=== PATIENT | female | born 1945 | race Caucasian/White ===

== ENCOUNTER 2020-11-19 10:51 | Outpatient (CLI) | payer MEDICARE | END 2020-11-19 10:52 | disposition home or self-care (01) | LOC: BICRAD 10:51 | PROVIDERS: ATTEND Internal Medicine Critical Care Medicine | DX: R06.00 Dyspnea, unspecified (principal); I51.7 Cardiomegaly; R09.89 Other specified symptoms and signs involving the circulatory and respiratory systems | CPT/HCPCS: 71046 ==

== ENCOUNTER 2021-04-14 12:47 | Outpatient (CLI) | payer MEDICARE | END 2021-04-14 12:48 | disposition home or self-care (01) | LOC: BICRAD 12:47 | PROVIDERS: ATTEND Internal Medicine Critical Care Medicine | DX: R06.00 Dyspnea, unspecified (principal) | CPT/HCPCS: 71046 ==

== ENCOUNTER 2021-10-15 13:36 | Inpatient (IN) | payer MEDICARE ==
[2021-10-15 16:04] VITALS: BMI 42.2
[2021-10-15] MEDS ORDERED: HYDROcodone/Acetaminophen 7.5/325 mg Tablet PO PRN (18:03)
[2021-10-15] MEDS ORDERED: Acetaminophen 325 MG TAB PO PRN (18:03)
[2021-10-15] MEDS ORDERED: Ondansetron PF 4 MG/2 ML Vial IVP PRN (18:03)
[2021-10-16] MEDS ORDERED: Ondansetron ODT 4 MG TAB PO PRN (02:58)
[2021-10-16] MEDS ORDERED: Dextrose 50% Abboject 50 ML SYRINGE SLOW IVP PRN (02:58)
[2021-10-16] MEDS ORDERED: Dextrose 5% in Water 1,000 ML IV PRN (02:58)
[2021-10-16] MEDS: HumaLOG 300 UNITS/3 ML VIAL SC PRN ×2 (05:44→21:41)
[2021-10-16 06:01] LABS: Magnesium 2.1 mg/dL (1.6-2.6)
[2021-10-16] MEDS ORDERED: Enoxaparin Sodium 40 MG/0.4 ML SYRINGE SC SCH (09:00)
[2021-10-16] MEDS ORDERED: Azithromycin 250 MG TAB PO SCH (12:15)
[2021-10-16] MEDS ORDERED: predniSONE 20 MG TAB PO SCH (12:15)
[2021-10-16] MEDS ORDERED: Albuterol Sulfate 2.5 mg/3 ml Neb NEB PRN (13:00)
[2021-10-16] MEDS: Furosemide 20 MG TAB PO SCH (14:28)
[2021-10-16] MEDS: Lantus 1000 UNITS/10 ML VIAL SC SCH (21:33)
[2021-10-16] MEDS: Atorvastatin Calcium 10 MG TAB PO SCH (21:33)
[2021-10-17] MEDS: Levothyroxine Sodium 112 MCG TAB PO SCH (05:17)
[2021-10-17] MEDS: HumaLOG 300 UNITS/3 ML VIAL SC PRN ×3 (05:20→21:32)
[2021-10-17 05:56] LABS: Anion Gap 14 mmol/L (10-20); BUN (Urea Nitrogen) 20 mg/dL (9.8-20.1); Calc. Creatinine Clearance 126 mL/min (70-130); Calcium 9.1 mg/dL (7.8-10.44); Carbon Dioxide 33 mmol/L (23-31); Chloride 94 mmol/L (98-107); Glucose 160 mg/dL (83-110); Potassium 4.1 mmol/L (3.5-5.1); Sodium 137 mmol/L (136-145)
[2021-10-17] MEDS: metFORMIN 500 MG TAB PO SCH ×2 (09:05→17:10)
[2021-10-17] MEDS: Furosemide 20 MG TAB PO SCH ×2 (09:06→13:41)
[2021-10-17] MEDS: Azithromycin 250 MG TAB PO SCH (09:06)
[2021-10-17] MEDS: predniSONE 20 MG TAB PO SCH (09:06)
[2021-10-17] MEDS: Stress 600 With Zinc 1 TAB PO SCH (09:20)
[2021-10-17] MEDS: Lisinopril/Hydrochlorothiazide 10 mg/12.5 mg Tablet PO SCH (09:20)
[2021-10-17] MEDS: Alogliptin 25 MG TAB PO SCH (09:21)
[2021-10-17] MEDS: Enoxaparin Sodium 120 MG/0.8 ML SYRINGE SC SCH ×2 (09:37→21:30)
[2021-10-17] MEDS: Atorvastatin Calcium 10 MG TAB PO SCH (21:30)
[2021-10-17] MEDS: Lantus 1000 UNITS/10 ML VIAL SC SCH (21:31)
[2021-10-18] MEDS: Levothyroxine Sodium 112 MCG TAB PO SCH (05:18)
[2021-10-18 05:44] LABS: #Eosinphils 0.1 thou/uL (0.0-0.7); #Lymphocytes 2.3 thou/uL (1.20-3.40); #Monocytes 1.1 thou/uL (0.11-0.59); #Neutrophils 6.6 thou/uL (1.40-6.50); %Basophils 0.2 % (0.0-1.0); %Eosinophils 1.1 % (0.0-10.0); %Lymphocytes 22.6 % (21.0-51.0); %Monocytes 11.2 % (0.0-10.0); Hemoglobin 12.2 g/dL (12.0-16.0); Mean Corpuscular HGB CONC 32.2 g/dL (32.0-36.0); Mean Corpuscular Hemoglobin 30.4 pg (27.0-31.0); Mean Corpuscular Volume 94.4 fL (78.0-98.0); Mean Platelet Volume 7.4 fL (7.4-10.4); Platelet Count 324 thou/uL (130-400); RBC Distribution Width 14.9 % (11.5-14.5); Red Blood Cell (RBC) Count 4.02 mill/uL (4.20-5.40); White Blood Cell (WBC) Count 10.1 thou/uL (4.8-10.8)
[2021-10-18 06:15] LABS: BUN (Urea Nitrogen) 19 mg/dL (9.8-20.1); Calc. Creatinine Clearance 117 mL/min (70-130); Calcium 9.4 mg/dL (7.8-10.44); Glucose 96 mg/dL (83-110)
[2021-10-18 06:17] LABS: Anion Gap 18 mmol/L (10-20); Carbon Dioxide 33 mmol/L (23-31); Chloride 89 mmol/L (98-107); Potassium 4.2 mmol/L (3.5-5.1); Sodium 136 mmol/L (136-145)
[2021-10-18] MEDS: metFORMIN 500 MG TAB PO SCH ×2 (08:38→17:38)
[2021-10-18] MEDS: Furosemide 20 MG TAB PO SCH ×2 (08:39→15:27)
[2021-10-18] MEDS: Lisinopril/Hydrochlorothiazide 10 mg/12.5 mg Tablet PO SCH (08:39)
[2021-10-18] MEDS: Azithromycin 250 MG TAB PO SCH (08:39)
[2021-10-18] MEDS: Stress 600 With Zinc 1 TAB PO SCH (08:39)
[2021-10-18] MEDS: predniSONE 20 MG TAB PO SCH (08:39)
[2021-10-18] MEDS: Enoxaparin Sodium 120 MG/0.8 ML SYRINGE SC SCH ×2 (08:39→21:28)
[2021-10-18] MEDS: Alogliptin 25 MG TAB PO SCH (08:40)
[2021-10-18] MEDS: HumaLOG 300 UNITS/3 ML VIAL SC PRN (17:38)
[2021-10-18] MEDS: Atorvastatin Calcium 10 MG TAB PO SCH (21:28)
[2021-10-18] MEDS: Lantus 1000 UNITS/10 ML VIAL SC SCH (21:36)
[2021-10-19] MEDS: Levothyroxine Sodium 112 MCG TAB PO SCH (05:36)
[2021-10-19 05:57] LABS: BUN (Urea Nitrogen) 25 mg/dL (9.8-20.1); Calc. Creatinine Clearance 94 mL/min (70-130); Calcium 10.1 mg/dL (7.8-10.44); Glucose 60 mg/dL (83-110)
[2021-10-19 06:06] LABS: Anion Gap 20 mmol/L (10-20); Carbon Dioxide 37 mmol/L (23-31); Chloride 86 mmol/L (98-107); Potassium 3.3 mmol/L (3.5-5.1); Sodium 140 mmol/L (136-145)
[2021-10-19 07:07] LABS: SARS-CoV-2 NAA Rapid Test Not Detected (NotDetected)
[2021-10-19] MEDS ORDERED: PROPOFOL 40 ML ONE (08:24)
[2021-10-19] MEDS ORDERED: PROPOFOL 20 ML ONE (08:26)
[2021-10-19] MEDS ORDERED: PROPOFOL 200 MG/20 ML VIAL ONE (08:26)
[2021-10-19] MEDS ORDERED: ePHEDrine 50 MG/ML VIAL ONE (08:26)
[2021-10-19] MEDS: predniSONE 20 MG TAB PO SCH (10:05)
[2021-10-19] MEDS: Stress 600 With Zinc 1 TAB PO SCH (10:05)
[2021-10-19] MEDS: Azithromycin 250 MG TAB PO SCH (10:05)
[2021-10-19] MEDS: Lisinopril/Hydrochlorothiazide 10 mg/12.5 mg Tablet PO SCH (10:05)
[2021-10-19] MEDS: Enoxaparin Sodium 120 MG/0.8 ML SYRINGE SC SCH (10:05)
[2021-10-19] MEDS: Furosemide 20 MG TAB PO SCH ×2 (10:05→15:02)
[2021-10-19] MEDS: metFORMIN 500 MG TAB PO SCH ×2 (10:06→17:04)
[2021-10-19] MEDS: Alogliptin 25 MG TAB PO SCH (10:06)
[2021-10-19] MEDS: HumaLOG 300 UNITS/3 ML VIAL SC PRN (17:04)
[2021-10-19] MEDS: Lantus 1000 UNITS/10 ML VIAL SC SCH (20:30)
[2021-10-19] MEDS: Atorvastatin Calcium 10 MG TAB PO SCH (20:30)
[2021-10-20 05:38] LABS: BUN (Urea Nitrogen) 32 mg/dL (9.8-20.1); Calc. Creatinine Clearance 68 mL/min (70-130); Calcium 9.9 mg/dL (7.8-10.44); Glucose 97 mg/dL (83-110)
[2021-10-20 05:47] LABS: Anion Gap 17 mmol/L (10-20); Chloride 83 mmol/L (98-107); Potassium 3.4 mmol/L (3.5-5.1); Sodium 138 mmol/L (136-145)
[2021-10-20] MEDS: Levothyroxine Sodium 112 MCG TAB PO SCH ×2 (05:47→05:49)
[2021-10-20 05:55] LABS: Carbon Dioxide Greater than 37 mmol/L (23-31); Critical Call Chemistry 2NO.AB1
[2021-10-20] MEDS ORDERED: Enoxaparin Sodium 30 MG/0.3 ML SYRINGE SC SCH (09:00)
[2021-10-20] MEDS: Azithromycin 250 MG TAB PO SCH (09:15)
[2021-10-20] MEDS: metFORMIN 500 MG TAB PO SCH (09:15)
[2021-10-20] MEDS: predniSONE 20 MG TAB PO SCH (09:16)
[2021-10-20] MEDS: Stress 600 With Zinc 1 TAB PO SCH (09:16)
[2021-10-20] MEDS: Furosemide 20 MG TAB PO SCH ×2 (09:16→15:47)
[2021-10-20] MEDS: Lisinopril/Hydrochlorothiazide 10 mg/12.5 mg Tablet PO SCH (09:44)
[2021-10-20] MEDS: Alogliptin 25 MG TAB PO SCH (09:45)
[2021-10-20 14:26] VITALS: BP 131/60; TEMP 98.5
== END 2021-10-20 16:50 | disposition home or self-care (01) | DRG 291 ==
LOC: 2NO 13:36
PROVIDERS: ADMIT Internal Medicine; ATTEND Family Medicine
PROC: B246ZZ4 Ultrasonography of Right and Left Heart, Transesophageal (ICD-10-PCS; principal; 2021-10-19)
DX: I11.0 Hypertensive heart disease with heart failure (principal); I50.33 Acute on chronic diastolic (congestive) heart failure; J96.01 Acute respiratory failure with hypoxia; J44.1 Chronic obstructive pulmonary disease with (acute) exacerbation; E11.9 Type 2 diabetes mellitus without complications; E03.9 Hypothyroidism, unspecified; I25.10 Atherosclerotic heart disease of native coronary artery without angina pectoris; G47.33 Obstructive sleep apnea (adult) (pediatric); E78.5 Hyperlipidemia, unspecified; E78.00 Pure hypercholesterolemia, unspecified; I27.21 Secondary pulmonary arterial hypertension; F32.A Depression, unspecified; I08.1 Rheumatic disorders of both mitral and tricuspid valves; Z20.822 Contact with and (suspected) exposure to COVID-19; Z87.891 Personal history of nicotine dependence
CPT/HCPCS: 36415; 36416; 80048; 83735; 85025; 93306; 93312; 93970; 94640; J1650; J1815; J2704; J3490; J7512; J7620; U0002